=== PATIENT | female | born 1950 ===

== ENCOUNTER 2022-01-27 10:15 | Inpatient (IN) | payer OTHER ==
[~2022-01-27] VITALS: Ht 160 cm; Wt 73.9 kg
[2022-01-27] MEDS ORDERED: RECLAST 55 MG/100 M IV (13:07)
[2022-01-27] MEDS ORDERED: SYNTHROID150 MCG PO (13:07)
[2022-01-27] MEDS ORDERED: SIMVAST PO (13:08)
[2022-01-30] MEDS ORDERED: LUMIGAN2.5 M1 (10:48)
[2022-01-30] MEDS ORDERED: FAMOTIDINE20 MG (10:49)
[2022-01-30] MEDS ORDERED: RALOXIFENE HCL60 MG (10:49)
[2022-01-30] MEDS ORDERED: PANTOPRAZOLE SO20 MG (10:49)
[2022-01-30] MEDS ORDERED: COMBIGAN EYE DRO5 ML (10:49)
[2022-01-30] MEDS ORDERED: LORAZEPAM2 MG (10:49)
[2022-01-30] MEDS ORDERED: DORZOLAMIDE-TIM10 ML (10:49)
[2022-01-30] MEDS ORDERED: SIMVASTATIN20 MG (10:49)
== END 2022-01-31 13:05 | disposition home or self-care (01) | DRG 735 ==
LOC: O/R 01-30 06:10 → SURH 01-30 10:15 → OB/GYN 01-30 18:33 → SURH 01-30 20:45 → OB/GYN 01-31 13:05
PROVIDERS: ADMIT Obstetrics & Gynecology Gynecologic Oncology; ATTEND Obstetrics & Gynecology Gynecologic Oncology
PROC: 0UT94ZZ Resection of Uterus, Percutaneous Endoscopic Approach (ICD-10-PCS; 2022-01-30)
PROC: 0D7N8DZ Dilation of Sigmoid Colon with Intraluminal Device, Via Natural or Artificial Opening Endoscopic (ICD-10-PCS; 2022-01-30)
PROC: 07TC4ZZ Resection of Pelvis Lymphatic, Percutaneous Endoscopic Approach (ICD-10-PCS; principal; 2022-01-30 20:45)
DX: C54.1 Malignant neoplasm of endometrium (principal); Z20.822 Contact with and (suspected) exposure to COVID-19; D25.2 Subserosal leiomyoma of uterus